=== PATIENT | female | born 1960 | race Caucasian/White ===

== ENCOUNTER 2024-03-26 13:45 | Emergency (ER) | payer BC ==
[2024-03-26] MEDS ORDERED: Sodium Chloride 0.9% 10 ML Syringe FLUSH PRN (14:00)
[2024-03-26 14:15] LABS: BASOPHILS PERCENT AUTO 0.3 % (0.0-1.0); EOSINOPHILS PERCENT AUTO 0.3 % (1.0-3.0); HEMATOCRIT 38.7 % (37.0-47.0); HEMOGLOBIN 12.5 g/dL (12.0-16.0); LYMPHOCYTES PERCENT AUTO 20.9 % (20.5-50.1); MEAN CORPUSCULAR HGB CONC 32.3 g/dL (33.0-35.0); MEAN CORPUSCULAR VOLUME 86.6 fL (80-100); MONOCYTES PERCENT AUTO 17.2 % (2-8); NEUTROPHILS PERCENT AUTO 61.3 % (42.2-75.2); PLATELET COUNT,PLT 182 10^3/uL (150-450); RED BLOOD CELL COUNT 4.47 10^6/uL (4.2-5.4)
[2024-03-26] MEDS: Sodium Chloride 0.9% 1,000 ML IV ONE (14:23)
[2024-03-26 14:30] LABS: PROTHROMBIN TIME 10.4 SEC (9.0-12.0)
[2024-03-26 14:34] LABS: A/G RATIO 1.1; ALANINE AMINOTRANSFERASE,ALT 41 U/L (14-59); ALBUMIN 3.5 g/dL (3.4-5.0); ALKALINE PHOSPHATASE 59 U/L (46-116); ANION GAP 9.4 mEq/L (7-13); ASPARTATE AMNIOTRANSFERASE,AST 29 U/L (15-37); BILIRUBIN TOTAL 0.3 mg/dL (0.2-1.0); BLOOD UREA NITROGEN,BUN 14 mg/dL (7-18); BUN/CREATININE RATIO 15.1 (No establ ref range); CALCIUM 8.5 mg/dL (8.5-10.1); CARBON DIOXIDE,CO2 33 mmol/L (21-32); CHLORIDE,CL 101 mmol/L (98-107); CREATININE 0.93 mg/dL (0.55-1.02); EST CRCL DRUG DOSING (CG) 59.47 mL/min; GLUCOSE RANDOM 112 mg/dL (70-99); MAGNESIUM 2.2 mg/dL (1.8-2.4); POTASSIUM,K 3.4 mmol/L (3.5-5.1); PROTEIN TOTAL,TP 6.7 g/dL (6.4-8.2); SODIUM,NA 140 mmol/L (136-145)
[2024-03-26 14:37] LABS: LACTIC ACID 1.2 mmol/L (0.4-2.0)
[2024-03-26 14:40] LABS: ESTIMATED GFR 70 mL/min (>=60)
[2024-03-26 14:41] LABS: C-REACTIVE PROTEIN < 0.50 ng/dL (<=0.50)
[2024-03-26 14:43] VITALS: BP 150/75; PULSE 98
== END 2024-03-26 15:06 | disposition home or self-care (01) ==
LOC: DL.ED 13:45
DX: J11.1 Influenza due to unidentified influenza virus with other respiratory manifestations (principal); K92.2 Gastrointestinal hemorrhage, unspecified; Z88.8 Allergy status to other drugs, medicaments and biological substances
CPT/HCPCS: 36415; 80053; 82272; 83605; 83735; 85025; 85610; 86140; 87428; 96360; 99284; J7030

== ENCOUNTER 2024-09-07 20:16 | Emergency (ER) | payer BC ==
[2024-09-07] MEDS: Dexamethasone 4 MG/ML SDV IM ONE (20:54)
[2024-09-07 21:11] VITALS: BP 136/76; PULSE 115
== END 2024-09-07 21:10 | disposition home or self-care (01) ==
LOC: DL.ED 20:16
DX: L51.1 Stevens-Johnson syndrome (principal); Z88.8 Allergy status to other drugs, medicaments and biological substances; Z88.2 Allergy status to sulfonamides
CPT/HCPCS: 96372; 99282; 99284; J1100